=== PATIENT | female | born 1970 | race American Indian/Alaskan Native ===

== ENCOUNTER 2021-03-14 21:26 | Emergency (ER) | payer SELFPAY ==
--- NOTE | 2021-03-14 23:45 | Event Note ---
ED Screening Note ED Screening Note: pt states she is having neck pain and headache after epidural yesterday states she is taking robaxin and tylenol she goes to a pain clinic no vision changes no fever no n/v/d no numbness no weakness allergy: vicodin, tramadol, latex This initial assessment/diagnostic orders/clinical plan/treatment(s) is/are subject to change based on patients health status, clinical progression and re- assessment by fellow clinical providers in the ED. Further treatment and workup at subsequent clinical providers discretion. Patient/guardian urged not to elope from the ED as their condition may be serious if not clinically assessed and managed. Initial orders include: labs
[2021-03-15 00:50] LABS: Basophils % (Auto) 0.1 % (0.0-1.8); Hematocrit 36.8 % (30.3-42.9); Hemoglobin 12.2 gm/dl (10.1-14.3); Lymphocytes # (Auto) 2.3 K/mm3 (1.2-5.4); Lymphocytes % (Auto) 16.9 % (13.4-35.0); Mean Corpuscular HGB Conc 33 % (30-34); Mean Corpuscular Volume 82 fl (79-97); Monocytes # (Auto) 0.6 K/mm3 (0.0-0.8); Monocytes % (Auto) 4.5 % (0.0-7.3); Platelet Count 352 K/mm3 (140-440); Red Blood Count 4.49 M/mm3 (3.65-5.03); Red Cell Distribution Width 16.4 % (13.2-15.2)
[2021-03-15 01:06] LABS: Alanine Aminotransferase 13 units/L (7-56); Albumin 5.3 g/dL (3.9-5); BUN/Creatinine Ratio 18; Blood Urea Nitrogen 16 mg/dL (7-17); Calcium 9.9 mg/dL (8.4-10.2); Hemolysis Index 3
--- NOTE | 2021-03-15 04:22 | Emergency Department Report ---
ED General Adult HPI - General Chief complaint: Neck Pain/Injury Stated complaint: REACTION TO SPINAL INJECTION;NECK PAIN Time Seen by Provider: 03/14/21 23:41 Source: patient Mode of arrival: Ambulatory Limitations: No Limitations - History of Present Illness Initial comments: 50-year-old female past medical history of rheumatoid arthritis and chronic back pain status post epidural injection on 03/13/2021 around 8:30 AM presents emerged department complaining of continued pain to the neck and back and thinks it may be secondary to her positioning on the table for - Related Data Allergies Allergy/AdvReac Type Severity Reaction Status Date / Time acetaminophen [From Vicodin] Allergy Itching Verified 03/15/21 00:39 hydrocodone [From Vicodin] Allergy Itching Verified 03/15/21 00:39 tramadol Allergy Hives Verified 03/15/21 00:39 ED Review of Systems ROS: Stated complaint: REACTION TO SPINAL INJECTION;NECK PAIN Other details as noted in HPI Comment: All other systems reviewed and negative ED Past Medical Hx - Past Medical History Hx Hypertension: Yes Hx Arthritis: Yes (Rheumatoid) Additional medical history: IBSD - Surgical History Past Surgical History?: Yes Additional Surgical History: SVT Ablation. Hysterectomy. Left breast Lumpectomy - Social History Smoking Status: Never Smoker Substance Use Type: None ED Physical Exam - General Limitations: No Limitations General appearance: alert, in no apparent distress - Head Head exam: Present: atraumatic, normocephalic - Eye Eye exam: Present: normal appearance, PERRL, EOMI Pupils: Present: normal accommodation - ENT ENT exam: Present: mucous membranes moist, TM's normal bilaterally, normal external ear exam - Neck Neck exam: Present: normal inspection, full ROM. Absent: meningismus, lymphadenopathy, thyromegaly - Respiratory Respiratory exam: Present: normal lung sounds bilaterally. Absent: respiratory distress - Cardiovascular Cardiovascular Exam: Present: regular rate, normal rhythm. Absent: systolic murmur, diastolic murmur, rubs, gallop - GI/Abdominal GI/Abdominal exam: Present: soft, normal bowel sounds - Extremities Exam Extremities exam: Present: normal inspection - Back Exam Back exam: Present: normal inspection - Neurological Exam Neurological exam: Present: alert, oriented X3 - Psychiatric Psychiatric exam: Present: normal affect, normal mood - Skin Skin exam: Present: warm, dry, intact, normal color. Absent: rash ED Course Vital Signs 03/14/21 23:37 Temperature 98.3 F Pulse Rate 65 Respiratory 18 Rate Blood Pressure 134/92 O2 Sat by Pulse 100 Oximetry ED Medical Decision Making - Lab Data Result diagrams: 03/15/21 00:01 03/15/21 00:01 - Medical Decision Making 50-year-old F [place] female status post lumbar epidural for chronic back pain complaining of spasms in the neck with with pain. Currently sees a pain specialist for her management but seeking some medication to help control. Treated emergency department with Percocet as well as anti-inflammatory no signs of any emergent medical conditions present. Critical care attestation.: If time is entered above; I have spent that time in minutes in the direct care of this critically ill patient, excluding procedure time. ED Disposition Clinical Impression: Back pain Disposition: DC-01 TO HOME OR SELFCARE Is pt being admited?: No Does the pt Need Aspirin: No Condition: Stable Instructions: Chronic Back Pain Additional Instructions: Please follow-up with your back specialty provider for further treatment options or your medication adjustments. Referrals: KAVIN KING MD [Primary Care Provider] - 3-5 Days
[2021-03-15] MEDS ORDERED: LORazepam 2 MG/ML VIAL IM STA (04:26)
[2021-03-15] MEDS ORDERED: KETOROLAC 30 MG/1 ML INJ IM ONE (04:26)
[2021-03-15] MEDS ORDERED: oxyCODONE /ACETAMINOPHEN 5-325MG TAB PO ONE (04:26)
[2021-03-15 05:52] VITALS: BP 124/76
== END 2021-03-15 05:20 | disposition home or self-care (01) ==
LOC: ED 21:26
DX: M54.9 Dorsalgia, unspecified (principal); G89.29 Other chronic pain; I10 Essential (primary) hypertension; M19.90 Unspecified osteoarthritis, unspecified site; Z88.8 Allergy status to other drugs, medicaments and biological substances; Z79.899 Other long term (current) drug therapy; Z98.890 Other specified postprocedural states; Z90.710 Acquired absence of both cervix and uterus
CPT/HCPCS: 36415; 80053; 85025; 96372; 99283; J1885; J2060